=== PATIENT | male | born 1940 | race Caucasian/White ===

== ENCOUNTER 2017-01-31 05:44 | Inpatient (IN) | payer MEDICARE ==
[2017-01-31] MEDS ORDERED: Atorvastatin* 80 MG TAB PO ONE (06:57)
[2017-01-31] MEDS ORDERED: Metoprolol Tartrate TAB* 25 MG PO SCH (07:00)
[2017-01-31] MEDS ORDERED: Heparin VIAL(*) 5000 UNITS/ML VIAL (FIVE THOUSAND) IV SCH (07:00)
[2017-01-31] MEDS ORDERED: Heparin DRIP 25,000 UNITS(*) 25,000 UNITS/500 ML BAG IV SCH (07:00)
--- NOTE | 2017-01-31 07:05 | ED ---
Ayaan Gordillo Adam, scribed for Power Mendez MD on 01/31/17 at 0552 . HPI Chest Pain - HPI Summary HPI Summary: Pt is a 76 year old male transferred from [place] with a reported NSTEMI. The pt states that when he got up to go to the bathroom this morning he suddenly felt a strong pressure in his chest which lasted for 4-5 minutes. He also reports SOB and tingling radiating down his arm. The pain is currently resolved and the pt is not in any discomfort at this time. Pt states that prior to this morning, he has been havin intermittent CP for at least 3 days. It tends to be brought on by exertion. He denies any SOB with recumbent position. He denies any diaphoresis or edema. He has chronic abdominal pain from an ulcer. Negative tobacco/alcohol use. Negative hx of DM and HLD. - History of Current Complaint Hx Obtained From: Patient Onset/Duration: Started Hours Ago, Atraumatic, Resolved Timing: Intermittent Initial Severity: Moderate Current Severity: None Pain Intensity: 0 Pain Scale Used: 0-10 Numeric Chest Pain Location: Diffuse Chest Pain Radiates: Yes Chest Pain Radiates To:: Arm Character: Pressure/Squeezing Aggravating Factor(s): Exertion Alleviating Factor(s): Spontaneous Resolution Associated Signs and Symptoms: Positive: Tingling - Arm, Shortness of Breath - Allergy/Home Medications Allergies/Adverse Reactions: Allergies Allergy/AdvReac Type Severity Reaction Status Date / Time No Known Allergies Allergy Verified 01/31/17 06:00 Home Medications: Home Medications Fenofibrate 145 mg PO DAILY 01/31/17 [History Confirmed 01/31/17] Levothyroxine TAB* [Synthroid TAB*] 75 mcg PO 0800 01/31/17 [History Confirmed 01/31/17] Tamsulosin CAP* [Flomax CAP*] 0.4 mg PO BEDTIME 01/31/17 [History Confirmed ] PMH/Surg Hx/FS Hx/Imm Hx Endocrine/Hematology History: Denies: Hx Diabetes Cardiovascular History: Denies: Hx Hypercholesterolemia GI History: Reports: Hx Ulcer - Family History Known Family History: Positive: Cardiac Disease - Father - Social History Occupation: Retired Lives: Alone Alcohol Use: None Hx Tobacco Use: No Smoking Status (MU): Never Smoked Tobacco Review of Systems Negative: Skin Diaphoresis Positive: Chest Pain Positive: Shortness Of Breath Positive: Abdominal Pain - Chronic from ulcer Negative: Edema Positive: Numbness - Tingling in arm All Other Systems Reviewed And Are Negative: Yes Physical Exam - Summary Physical Exam Summary: The patient is well-nourished in no acute distress and in no acute pain. The skin is warm and dry and skin color reflects adequate perfusion. HEENT: The head is normocephalic and atraumatic. The pupils are equal and reactive. The conjunctivae are clear and without drainage. Nares are patent and without drainage. Mouth reveals moist mucous membranes and the throat is without erythema and exudate. The external ears are intact. The ear canals are patent and without drainage. The tympanic membranes are intact. Neck is supple with full range of motion and non-tender. There are no carotid bruits. There is no neck vein distension. Respiratory: Chest is non-tender. Lungs are clear to auscultation and breath sounds are symmetrical and equal. Cardiovascular: Heart is regular rate and rhythm. There is no murmur or rub auscultated. There is no peripheral edema and pulses are symmetrical and equal. Abdomen: The abdomen is soft and non-tender. There are normal bowel sounds heard in all four quadrants and there is no organomegaly palpated. Musculoskeletal: There is no back pain noted. Extremities are non-tender with full range of motion. There is good capillary refill. There is no peripheral edema or calf tenderness elicited. Neurological: Patient is alert and oriented to person, place and time. The patient has symmetrical motor strength in all four extremities. Cranial nerves are grossly intact. Deep tendon reflexes are symmetrical and equal in all four extremities. Psychiatric: The patient has an appropriate affect and does not exhibit any anxiety or depression. Triage Information Reviewed: Yes Vital Signs On Initial Exam: Initial Vitals Temp Pulse Resp BP Pulse Ox 97.7 F 56 14 135/77 95 01/31/17 05:51 01/31/17 05:51 01/31/17 05:51 01/31/17 05:51 01/31/17 05:51 Vital Signs Reviewed: Yes Diagnostics - Vital Signs Vital Signs Temp Pulse Resp BP Pulse Ox 01/31/17 06:30 55 11 118/76 97 01/31/17 06:18 54 15 97 01/31/17 06:16 145/69 01/31/17 05:52 97.7 F 56 14 135/77 95 01/31/17 05:51 97.7 F 56 14 135/77 95 - Laboratory Lab Results: Lab Results 01/31/17 Range/Units 06:26 B-Natriuretic Peptide 72 ( - 100) pg/mL Lab Statement: Any lab studies that have been ordered have been reviewed, and results considered in the medical decision making process. - EKG 06:01 Cardiac Rate: NL - 83 BPM EKG Rhythm: Sinus Rhythm Ectopy: PVCs EKG Interpretation: Old inferior wall AL. No ST elevations. Chest Pain Course/Dx - Course Assessment/Plan: there was no critical care time. pt was transferred from a critical access hospital and the hosptialist service was consulted for admission. - Chest Pain Differential Diagnosis/HQI/PQRI: ACS - Diagnoses Provider Diagnoses: NSTEMI (non-ST elevated myocardial infarction) - Provider Notifications Discussed Care Of Patient With: Dr. Barkley (hospitalist) at 06:12. He accepts admission of the patient. Discharge - Discharge Plan Condition: Stable Disposition: ADMITTED TO [facility] Referrals: Session Mamadou SALAS [Primary Care Provider] - The documentation as recorded by the Ayaan ryan Adam accurately reflects the service I personally performed and the decisions made by , Power Mendez MD.
[2017-01-31 08:45] LABS: Hematocrit 45 % (42-52); Hemoglobin 14.9 g/dl (14.0-18.0); Mean Corpuscular HGB Conc 33 g/dl (31-36); Mean Corpuscular Hemoglobin 30 pg (27-31); Mean Corpuscular Volume 91 fL (80-94); Mean Platelet Volume 8 um3 (7.4-10.4); Red Blood Count 4.92 10^6/ul (4.0-5.4); Red Cell Distribution Width 14 % (10.5-15); White Blood Count 6.9 10^3/ul (3.5-10.8)
[2017-01-31] MEDS: CMC: Fenofibrate(NF) 145 MG TAB PO SCH (09:01)
[2017-01-31 09:15] LABS: Troponin I 0.28 ng/mL (<0.04)
[2017-01-31] MEDS ORDERED: Atorvastatin* 80 MG TAB ONE (09:44)
[2017-01-31] MEDS: Ticagrelor* 90 MG TAB PO SCH ×2 (09:50→20:25)
[2017-01-31] MEDS: Aspirin EC Low Dose* 81 MG TAB.EC PO SCH (09:50)
[2017-01-31] MEDS: Levothyroxine TAB* 75 MCG TAB PO SCH (09:50)
[2017-01-31] MEDS ORDERED: NS 0.9% 1000 ML* 1,000 ML IV SCH ×2 (13:00→16:15)
[2017-01-31] MEDS: Omeprazole CAP* 20 MG PO SCH ×2 (13:16→20:25)
--- NOTE | 2017-01-31 13:17 | HP ---
HISTORY AND PHYSICAL: DATE OF ADMISSION: 01/31/17 CHIEF COMPLAINT: Chest pain. HISTORY OF PRESENT ILLNESS: The patient is a 76-year-old gentleman, who said he is having chest pressure on and off for the last 10 days. He went to the [facility] and they did a workup on him including an EKG and they thought there was congestion in his chest. He was placed on Levaquin for this. He said it did not help at all, in fact, if anything it aggravated his stomach. Early this morning, he had an increased chest pressure. It was about 3-4/10 in severity. It was on the left side. No nausea or vomiting, no palpitations, no sweating. He went to [facility], where he got 4 aspirin. In the ER there, he was found to have an elevated troponin of 0.45. PAST MEDICAL HISTORY: Significant for bleeding ulcer, thyroid dysfunction, BPH , hypertriglyceridemia. He denies any other history. CURRENT MEDICATIONS: Include: 1. Levothyroxine 75 mcg daily. 2. Tamsulosin 0.4 mg daily. 3. Fenofibrate 145 mg daily. ALLERGIES: He has no known drug allergies. FAMILY HISTORY: Mother at 80 of brain cancer. Father at 73. He had peptic ulcer disease. SOCIAL HISTORY: No tobacco, alcohol, or recreational drug use. 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 He is . He has 2 sons. His son, Kishore Ybarra, is his healthcare proxy. REVIEW OF SYSTEMS: A 14-point review of systems was completed with the patient. All pertinent positives and negatives are in the history of present illness, otherwise is negative. PHYSICAL EXAMINATION GENERAL: Pleasant gentleman, lying in bed, in no acute distress. VITAL SIGNS: Temperature 97.7 degrees, heart rate 62 beats per minute, respiratory rate 15 breaths per minute, pulse ox 97%, blood pressure 145/69. HEENT: Normocephalic, atraumatic. Pupils are equal, round, and reactive to light. Moist mucous membranes. NECK: Supple. No JVD, bruits, palpable thyroid, or lymphadenopathy. CHEST: Clear to auscultation and percussion bilaterally. CARDIOVASCULAR: S1, S2 appreciated. Regular rate and rhythm. ABDOMEN: Positive bowel sounds in all 4 quadrants. Soft, nontender, and nondistended. No hepatosplenomegaly. EXTREMITIES: No cyanosis, clubbing, or edema. +2 peripheral pulses bilaterally. NEURO: Alert and oriented x3. Moves all extremities. SKIN: No rashes or other abnormalities. DIAGNOSTIC STUDIES/LAB DATA: From [facility] shows white blood cell count of 7.47, hemoglobin 15.3, hematocrit 44.7, platelets are 227. His sodium was 139, potassium is 3.8, chloride 102, CO2 26, his BUN is 20, creat 1.3, his glucose is 124. His troponin is 0.45. BNP is 61.7. TSH 2.56. Chest x-ray results are not available for review. EKG shows second-degree heart block, Mobitz type II, PVCs, and bigeminy. ASSESSMENT AND PLAN: 1. Non-ST elevation myocardial infarction diagnosis, we will await our followup troponins here. For now, place on heparin drip, Brilinta, metoprolol, aspirin, and Lipitor. We will get cholesterol level. Cardiology is aware. Will likely benefit from cardiac cath. Place on telemetry. 2. Benign prostatic hyperplasia. Stable, continue tamsulosin. 3. Hypothyroidism. Stable, continue Synthroid. 4. FEN. N.p.o. awaiting likely intervention. 5. The patient is a full code. TIME SPENT: Over 75 minutes was spent on this H and P; more than 40 minutes of which was spent in direct [id number] contact with the patient in evaluation, physical exam, counseling, and coordination of care. CC: TALHA Nunez; Syed Perry MD* [id number]/[facility] #: [id number] MTDD
[2017-01-31] MEDS ORDERED: Heparin(*) 1000 UNIT/ML 10 ML VIAL CATH LAB IV ONE (14:24)
[2017-01-31] MEDS ORDERED: fentaNYL* 50 MCG/ML 2 ML VIAL (100 MCG VIAL) ONE (14:24)
[2017-01-31] MEDS ORDERED: Midazolam* 1 MG/ML 5 ML VIAL (5 MG) ONE (14:24)
[2017-01-31] MEDS ORDERED: VERAPAMIL 2.5 MG/ML 4 ML VIAL ONE (14:25)
[2017-01-31] MEDS ORDERED: nitroGLYCERIN DRIP* 250 ML ONE (14:25)
[2017-01-31] MEDS ORDERED: Heparin 2 UNITS/ML IVPREMIX* 2,000 ML IV ONE (14:25)
[2017-01-31] MEDS ORDERED: Lidocaine 1% INJ* 10 MG/ML 30 ML SDV ONE (14:25)
[2017-01-31] MEDS ORDERED: Iodixanol* (CONTRAST) 320 MG/ML 100 ML SDV ONE ×2 (14:26→15:11)
[2017-01-31] MEDS ORDERED: Nitroglycerin TAB 0.4 MG* 0.4 MG TAB SL PRN (16:14)
[2017-01-31] MEDS ORDERED: Ondansetron INJ* 2 MG/ML VIAL IV PRN (16:16)
[2017-01-31 17:01] LABS: Troponin I 0.35 ng/mL (<0.04)
[2017-01-31] MEDS: Metoprolol Tartrate TAB* 25 MG PO SCH (17:48)
[2017-01-31] MEDS: Tamsulosin CAP* 0.4 MG PO SCH (20:25)
[2017-01-31] MEDS ORDERED: Ticagrelor* 90 MG TAB PO SCH (21:00)
--- NOTE | 2017-01-31 21:02 | CONS ---
INTERVENTIONAL CARDIOLOGY CONSULT NOTE: DATE OF CONSULT: 01/31/17 PRIMARY CARE PHYSICIAN: Dr. Cervantes in [place]. HISTORY OF PRESENT ILLNESS: This 76-year-old male transferred from [place] ER with troponin-positive ACS. He is a fairly vague historian, denies any previous cardiac history. About a week and a half ago, he started to notice exertional dyspnea which was entirely new, associated with very vague mild chest pressure, which would last only a few seconds. He tells me, he was evaluated for an upper respiratory infection, had a chest x-ray and an EKG which were as far as he knows unremarkable. I do not have any records of that evaluation, but we do have an EKG from 01/17/17 from [place] which shows evidence of an old inferior infarct with Q-wave in aVF and ventricular ectopy. He then had another episode of chest pressure 3 days ago, on Tuesday, which he says lasted only a few minutes. He presented to [place] this morning and was transferred to our ER and then admitted. He is pain free. He relates a lifelong history of ulcer disease with upper GI bleeding at the time, used to be treated with Carafate. Now, he takes Zantac 75 mg b.i.d. whenever his "ulcer acts up" with pain. He has not had further bleeding. He does not take aspirin, he is not on a regular acid regimen. PAST MEDICAL HISTORY: Hyperlipidemia, on fenofibrate. Remote history of ulcer disease, hypothyroidism on replacement, apparent BPH, CKD stage 3. PRE-HOSPITAL MEDICATIONS: 1. Flomax 0.4 mg daily. 2. Synthroid 75 mcg daily. 3. Fenofibrate 145 mg daily. 4. Carafate 75 mg b.i.d. for the past week. ALLERGIES: None to mediations. FAMILY HISTORY: Positive for heart disease and palpitations. SOCIAL HISTORY: Non-smoker. REVIEW OF SYSTEMS: General: No weight loss. No fevers. TRANSIT SPECIALIST: No history of TIA or CVA. GI: Positive for history of remote ulcer disease, no subsequent bleeding, does not take aspirin. Circulatory: No claudication. Endocrine: No history of diabetes. Remainder all negative. PHYSICAL EXAM: General: He is pain free, complains of being hungry. Vital Signs: His BP is 140/67, heart rate is in the 50s to 60s and sinus rhythm, he is afebrile. Lungs: Clear to percussion and auscultation. Neck: JVP and carotids are normal. No bruits. JVP normal. HEENT: Unremarkable. Cardiac exam: Chest wall nontender, apex and RV not palpable, normal heart sounds, no gallops, murmur or rub. Abdomen: Very mild epigastric tenderness. Normal bowel sounds, aorta not palpable. Femoral pulses 2+, radial pulses 2+, pedal pulses 2+. He has no cyanosis, clubbing or edema. DIAGNOSTIC STUDIES/LAB DATA: Creatinine 1.3, blood sugar 124. CBC is stable. EKG shows again the inferior Q-wave. Troponin 0.36, 0.28, 0.37. BNP normal at 72. IMPRESSION: Troponin positive acute coronary syndrome/non-ST elevation infarct. He is a fairly vague historian, but has had recent onset of dyspnea with exertion. He has had fleeting episodes of vaguely described chest discomfort, he has a small troponin rise and evidence of an inferior infarct on EKG. We discussed the diagnosis, catheterization, his DILCIA score is 3. Culprit revascularization is appropriate depending on anatomy. We discussed possible stenting, we also discussed procedure risks including, myocardial infarction, cerebrovascular accident, bleeding, need for bypass grafting, emergent transfer, etc., we also discussed need for antiplatelet therapy post stenting without interruption and likely need for concomitant PPI therapy. He is agreeable to proceed. Hyperlipidemia: On fenofibrate. Lipid profile is pending. CC: Session in [place]* [id number]/[facility] #: [id number] JO
[2017-01-31 22:34] LABS: Troponin I 0.59 ng/mL (<0.04)
[2017-02-01] MEDS: Metoprolol Tartrate TAB* 25 MG PO SCH ×3 (00:44→20:17)
[2017-02-01 05:24] LABS: Hematocrit 40 % (42-52); Hemoglobin 13.6 g/dl (14.0-18.0); Mean Corpuscular HGB Conc 34 g/dl (31-36); Mean Corpuscular Hemoglobin 31 pg (27-31); Mean Corpuscular Volume 91 fL (80-94); Mean Platelet Volume 9 um3 (7.4-10.4); Red Blood Count 4.43 10^6/ul (4.0-5.4); Red Cell Distribution Width 14 % (10.5-15); White Blood Count 9.3 10^3/ul (3.5-10.8)
[2017-02-01 05:45] LABS: Calcium 8.8 mg/dL (8.6-10.3); EGFR African American 76.2 (>60); EGFR Non-African American 59.3 (>60); HDL Cholesterol 35.5 mg/dL; Potassium 3.7 mmol/L (3.5-5.0)
[2017-02-01] MEDS: Levothyroxine TAB* 75 MCG TAB PO SCH (05:47)
[2017-02-01 06:00] LABS: Troponin I 1.58 ng/mL (<0.04)
--- NOTE | 2017-02-01 09:05 | PN ---
Subjective Date of Service: 02/01/17 Interval History: Pt is feeling well. No chest pain or SOB today. His wrist is feeling ok. He is anxious to get home as soon as possible. Objective Active Medications: Aspirin (Aspirin Ec Low Dose*) 81 mg PO DAILY ON LICENSE OF [facility] Last Admin: 01/31/17 09:50 Dose: 81 mg Fenofibrate (Tricor(Nf)) 145 mg PO DAILY ON LICENSE OF [facility] Last Admin: 01/31/17 09:01 Dose: Not Given Levothyroxine Sodium (Synthroid Tab*) 75 mcg PO 0600 ON LICENSE OF [facility] Last Admin: 02/01/17 05:47 Dose: 75 mcg Metoprolol Tartrate (Lopressor Tab*) 50 mg PO BID ON LICENSE OF [facility] Nitroglycerin (Nitroglycerin Tab 0.4 Mg*) 0.4 mg SL Q5M PRN PRN Reason: ANGINA Omeprazole (Prilosec Cap*) 20 mg PO BID ON LICENSE OF [facility] Last Admin: 01/31/17 20:25 Dose: 20 mg Ondansetron HCl (Zofran Inj*) 4 mg IV Q4H PRN PRN Reason: NAUSEA Prasugrel (Effient (Nf)) 10 mg PO DAILY ON LICENSE OF [facility] Tamsulosin HCl (Flomax Cap*) 0.4 mg PO BEDTIME ON LICENSE OF [facility] Last Admin: 01/31/17 20:25 Dose: 0.4 mg Ticagrelor (Brilinta*) 90 mg PO BID ON LICENSE OF [facility] Stop: 02/01/17 23:59 Last Admin: 01/31/17 20:25 Dose: 90 mg Vital Signs 01/31/17 01/31/17 01/31/17 09:03 11:31 16:03 Temperature 98.0 F 98.3 F Pulse Rate 57 52 53 Respiratory 18 20 15 Rate Blood Pressure 151/72 140/67 (mmHg) O2 Sat by Pulse 100 100 96 Oximetry 01/31/17 01/31/17 01/31/17 16:10 16:15 16:30 Temperature 98.7 F Pulse Rate 69 54 66 Respiratory 15 13 20 Rate Blood Pressure 144/59 137/63 127/67 (mmHg) O2 Sat by Pulse 97 96 92 Oximetry 01/31/17 01/31/17 01/31/17 16:45 17:00 17:15 Temperature Pulse Rate 103 51 67 Respiratory 13 19 17 Rate Blood Pressure 140/102 139/69 142/75 (mmHg) O2 Sat by Pulse 94 97 94 Oximetry 01/31/17 01/31/17 01/31/17 17:30 17:45 18:00 Temperature Pulse Rate 53 56 59 Respiratory 17 18 17 Rate Blood Pressure 137/75 139/71 144/69 (mmHg) O2 Sat by Pulse 98 98 97 Oximetry 01/31/17 01/31/17 01/31/17 18:15 18:30 18:45 Temperature Pulse Rate 80 79 48 Respiratory 16 17 15 Rate Blood Pressure 115/52 126/83 113/64 (mmHg) O2 Sat by Pulse 98 95 95 Oximetry 01/31/17 01/31/17 01/31/17 19:00 19:28 20:00 Temperature 98.6 F Pulse Rate 63 Respiratory 14 19 Rate Blood Pressure 119/56 121/66 (mmHg) O2 Sat by Pulse 95 94 Oximetry 01/31/17 01/31/17 01/31/17 21:00 22:00 23:00 Temperature Pulse Rate Respiratory 18 22 13 Rate Blood Pressure 122/60 137/63 (mmHg) O2 Sat by Pulse 93 93 96 Oximetry 01/31/17 01/31/17 02/01/17 23:15 23:34 00:00 Temperature 98.4 F Pulse Rate Respiratory 12 23 Rate Blood Pressure (mmHg) O2 Sat by Pulse 95 94 Oximetry 02/01/17 02/01/17 02/01/17 00:01 01:00 02:00 Temperature Pulse Rate Respiratory 22 12 15 Rate Blood Pressure 120/52 115/71 99/48 (mmHg) O2 Sat by Pulse 94 96 91 Oximetry 02/01/17 02/01/17 02/01/17 02:02 03:00 03:13 Temperature 97.9 F Pulse Rate Respiratory 13 15 Rate Blood Pressure 115/49 114/57 (mmHg) O2 Sat by Pulse 93 92 Oximetry 02/01/17 02/01/17 02/01/17 03:40 04:00 05:00 Temperature Pulse Rate 57 Respiratory 15 13 Rate Blood Pressure 128/62 115/49 (mmHg) O2 Sat by Pulse 94 Oximetry 02/01/17 02/01/17 02/01/17 05:52 06:00 07:00 Temperature Pulse Rate 55 Respiratory 15 16 19 Rate Blood Pressure 144/65 143/63 (mmHg) O2 Sat by Pulse 97 95 Oximetry 02/01/17 02/01/17 07:52 08:00 Temperature 97.9 F Pulse Rate 69 Respiratory 15 Rate Blood Pressure 146/69 (mmHg) O2 Sat by Pulse 97 Oximetry Oxygen Devices in Use Now: None Appearance: Elderly male sitting up in bed, NAD Eyes: No Scleral Icterus Ears/Nose/Mouth/Throat: Mucous Membranes Moist Respiratory: Symmetrical Chest Expansion and Respiratory Effort, Clear to Auscultation Cardiovascular: NL Sounds; No Murmurs; No JVD, RRR, No Edema Abdominal: NL Sounds; No Tenderness; No Distention Extremities: No Clubbing, Cyanosis Skin: No Rash or Ulcers, No Nodules or Sclerosis Neurological: Alert and Oriented x 3 Result Diagrams: 02/01/17 04:20 02/01/17 04:20 Additional Lab and Data: Lab Results 01/31/17 Range/Units 06:26 B-Natriuretic Peptide 72 ( - 100) pg/mL Microbiology and Other Data: Microbiology 01/31/17 16:44 Nasal Screen MRSA (PCR)(PATO) - Final Nasal Mrsa Negative Assess/Plan/Problems-Billing Mr Ybarra is a 76 yo M who has a h/o hypothyroidism, BPH and HLD who presented initially to [facility] for evaluation of chest pressure and was found to have a NSTEMI and was transferred to [facility] [place] evaluation. - Patient Problems (1) NSTEMI (non-ST elevated myocardial infarction) Current Visit: Yes Status: Acute Code(s): I21.4 - NON-ST ELEVATION (NSTEMI) MYOCARDIAL INFARCTION SNOMED Code(s): 082859514 Comment: The patient was found to have a tight LAD lesion with clot present. He is now s/p stenting and feeling well. Most of the clot was able to be extracted however Dr. Mckeon stated a small part remained and lodged into another vessel likely leading to the troponin bump this AM. Continue ASA, effient and metoprolol. Lipid profile is favorable but will continue lipitor 40mg qHS. Transfer to [facility] and walking today and likely home tomorrow. (2) HLD (hyperlipidemia) Current Visit: Yes Status: Acute Code(s): E78.5 - HYPERLIPIDEMIA, UNSPECIFIED SNOMED Code(s): 70403053 Comment: Continue lipitor as above. (3) BPH (benign prostatic hyperplasia) Current Visit: Yes Status: Acute Code(s): N40.0 - BENIGN PROSTATIC HYPERPLASIA WITHOUT LOWER URINRY TRACT SYMP SNOMED Code(s): 478267856 Comment: Continue flomax. (4) Hypothyroid Current Visit: Yes Status: Acute Code(s): E03.9 - HYPOTHYROIDISM, UNSPECIFIED SNOMED Code(s): 99433255 Comment: Continue current dose of synthroid. (5) DVT prophylaxis Current Visit: Yes Status: Acute Code(s): BUR0014 - SNOMED Code(s): 030600983 Comment: Start SQ heparin (6) Full code status Current Visit: Yes Status: Acute Code(s): Z78.9 - OTHER SPECIFIED HEALTH STATUS SNOMED Code(s): 814566343
[2017-02-01] MEDS: CMC: Pantoprazole TAB (NF) 40 MG TAB PO SCH ×2 (09:44→20:17)
[2017-02-01] MEDS: Ticagrelor* 90 MG TAB PO SCH ×2 (09:44→20:17)
[2017-02-01] MEDS: Aspirin EC Low Dose* 81 MG TAB.EC PO SCH (09:44)
[2017-02-01 09:48] LABS: BUN/Creatinine Ratio 13.9 (8-20); Calcium 9.3 mg/dL (8.6-10.3); EGFR African American 74.1 (>60); EGFR Non-African American 57.6 (>60); HDL Cholesterol 40.7 mg/dL; Potassium 3.7 mmol/L (3.5-5.0)
[2017-02-01 10:15] LABS: Troponin I 1.97 ng/mL (<0.04)
[2017-02-01] MEDS: CMC: Fenofibrate(NF) 145 MG TAB PO SCH (10:53)
[2017-02-01] MEDS: Heparin VIAL(*) 5000 UNITS/ML VIAL (FIVE THOUSAND) SUBCUT SCH ×3 (12:56→21:41)
[2017-02-01 16:21] LABS: Hematocrit 41 % (42-52); Hemoglobin 13.7 g/dl (14.0-18.0); Mean Corpuscular HGB Conc 33 g/dl (31-36); Mean Corpuscular Hemoglobin 30 pg (27-31); Mean Corpuscular Volume 91 fL (80-94); Mean Platelet Volume 8 um3 (7.4-10.4); Red Cell Distribution Width 14 % (10.5-15); White Blood Count 9.8 10^3/ul (3.5-10.8)
[2017-02-01] MEDS: Tamsulosin CAP* 0.4 MG PO SCH (20:06)
[2017-02-01] MEDS ORDERED: Atorvastatin* 40 MG TAB PO SCH (21:00)
--- NOTE | 2017-02-01 22:40 | CATH ---
STENT REPORT: DATE OF PROCEDURE: 01/31/17 - ROOM #441 PRIMARY CARE PHYSICIAN: TALHA Nunez in [place]. PROCEDURES: Right radial artery access, bilateral selective coronary cineangiography, aspiration thrombectomy LAD, stent placement LAD 3.5 X 12 Synergy drug-eluting stent, post dilated with 3.75 x 12 noncompliant. HISTORY: A 76-year-old male with non-ST elevation infarct. PROCEDURE ACCESS: Right radial artery sheath, 6-F slender. MEDICATIONS: 1. Subcu lidocaine. 2. IV Versed. 3. IV fentanyl. 4. Heparin 3000 units, verapamil 3 mg. 5. Heparin 3000 units IA. 6. Brilinta 90 mg p.o. 7. Aspirin 81 mg p.o. pre-procedure. 8. Heparin 4000 units, 2000 units IV. DIAGNOSTIC CATHETERS: 5F TIG4, 5FL 3.5, 5F pigtail. HEMODYNAMICS: Initial BP 99/63, LV 110/4, no aortic valve gradient on pullback. GUIDING CATHETER: 6FL BU 3.5 wire 14 BMW. After the LAD was wired, a Pronto aspiration catheter was advanced for aspiration thrombectomy of the large thrombus within the LAD. The LAD was then stented with a 3.5 x 12 Synergy drug- eluting stent, 18 atmospheres 24 seconds, then post dilated with a 3.75 x 12 noncompliant balloon 20 atmospheres 30 seconds. After stent deployment, there was cut off of 2 branches of the septal car dumper likely due to embolization, these were each probed with the BMW wire and the balloon catheter was advanced past the point of occlusion; however, without any improved perfusion. I did not advance the Pronto into the septal car dumper because of its small size, out of concern of damaging the vessel. ANGIOGRAPHY: RCA: The RCA is large, dominant, has proximal 30% stenosis followed by another 30% stenosis. The PDA is moderate, followed by 2 smaller posterolaterals, the RCA has no significant stenosis. Left main: The left main is normal in size, has no stenosis. LAD: The LAD is large, supplies a large bifurcated diagonal branch after which , the LAD has an eccentric relatively short 95% stenosis from which there is an adherent thrombus. LAD distally has DILCIA-2 flow. Circumflex: The circumflex is moderate, not dominant with a small marginal and bifurcated posterolateral, has no significant stenosis. LV gram: There is a very localized apical hypokinesis, estimated LVEF with ectopy 55%. After LAD aspiration thrombectomy, the thrombus is not evident. After stent placement, post dilatation, the LAD has DILCIA-3 flow, no residual stenosis; however, there is a cut-off of each of the 2 branches of the septal car dumper, which persisted after wiring and passage of the balloon catheter. CONCLUSION: 1. Single vessel disease LAD, excellent angiographic result with drug-eluting stent placement accompanied by embolic occlusion of 2 branches of the septal car dumper unchanged with probing with the intracoronary wire and balloon catheter, aspiration thrombectomy not pursued because of concern of the size mismatch with the Pronto catheter. 2. LVEF with mild regional wall motion abnormality. 3. Normal left-sided hemodynamics. 4. Successful right radial artery access. CC: TALHA Nunez* [id number] #: [id number] MTDD
[2017-02-02] MEDS: Heparin VIAL(*) 5000 UNITS/ML VIAL (FIVE THOUSAND) SUBCUT SCH (05:13)
[2017-02-02] MEDS: Levothyroxine TAB* 75 MCG TAB PO SCH (05:13)
[2017-02-02 06:27] LABS: Hematocrit 42 % (42-52); Hemoglobin 14.1 g/dl (14.0-18.0); Mean Corpuscular HGB Conc 34 g/dl (31-36); Mean Corpuscular Hemoglobin 30 pg (27-31); Mean Corpuscular Volume 90 fL (80-94); Mean Platelet Volume 9 um3 (7.4-10.4); Red Blood Count 4.63 10^6/ul (4.0-5.4); Red Cell Distribution Width 14 % (10.5-15); White Blood Count 9.3 10^3/ul (3.5-10.8)
[2017-02-02 07:33] VITALS: BP 120/53
[2017-02-02] MEDS: CMC: Pantoprazole TAB (NF) 40 MG TAB PO SCH (08:24)
[2017-02-02] MEDS ORDERED: Prasugrel (NF) 10 MG PO SCH (09:00)
[2017-02-02] MEDS: Aspirin EC Low Dose* 81 MG TAB.EC PO SCH (09:37)
[2017-02-02] MEDS: Metoprolol Tartrate TAB* 25 MG PO SCH (09:37)
--- NOTE | 2017-02-03 12:07 | DS ---
DISCHARGE SUMMERY: DATE OF ADMISSION: 01/31/17. DATE OF DISCHARGE: 02/02/17. PRIMARY CARE PHYSICIAN: TLAHA Nunez. PRINCIPAL DIAGNOSIS: Non-ST elevation myocardial infarction. SECONDARY DIAGNOSES: 1. Hyperlipidemia. 2. Benign prostatic hyperplasia. 3. Hypothyroidism. DISCHARGE MEDICATIONS: 1. Flomax 0.4 mg p.o. q.h.s. 2. Synthroid 75 mcg p.o. daily. 3. Prasugrel 10 mg p.o. daily. 4. Omeprazole 20 mg p.o. daily. 5. Metoprolol tartrate 50 mg p.o. q.12 hours. 6. Lipitor 40 mg p.o. q.h.s. 7. Aspirin 81 mg p.o. daily. HOSPITAL COURSE: Mr. Ybarra is 76-year-old male who presented initially to [facility] approximately 10 days ago. He at that time was felt to have chest congestion, possible pneumonia, was started on Levaquin. He did not get any better, and in fact continued to have intermittent chest pressure. He re- presented to [facility] where he received 4 aspirin and in the ER was found to have a troponin of 0.45. The patient was ultimately transferred to [facility] for further evaluation. The patient was seen in consultation by Dr. Mckeon who felt that performing cardiac catheterization was necessary. The patient was taken to the labor utilization superintendent where he was found to have single vessel disease of the LAD. The patient was found to have a relatively short 95% stenosis from which there is an adherent thrombus. The patient had an aspiration thrombectomy and drug-eluting stent placement. The patient did well following the procedure. He has been up and ambulating well. The patient was felt to be ready for discharge home on 02/02/17. The patient was tolerating the new medications well. All prescriptions have been filled through the [facility] outpatient pharmacy and had been delivered to the patient's bedside prior to discharge. FOLLOWUP CONCERNS: The patient is being discharged home today, 02/02/17. Patient should follow up with Mamadou Reyna in the next 4 to 7 days, and Dr. Arizmendi on 02/08/17 at 1:15 p.m. ACTIVITY LEVEL: Is as per post-cath instructions. DIET: Low fat. CONDITION ON DISCHARGE: Stable. Thirty-five minutes was spent discharging this patient. CC: Dr. Arizmendi; TALHA Nunez. * [id number]/[facility] #: [id number] JO
== END 2017-02-02 11:07 | disposition home or self-care (01) | DRG 247 ==
LOC: ED 05:44 → MEDTELE 06:57 → ICU 15:31 → MEDTELE 02-01 11:16
PROVIDERS: ADMIT Internal Medicine; ATTEND Hospitalist
PROC: 027034Z Dilation of Coronary Artery, One Artery with Drug-eluting Intraluminal Device, Percutaneous Approach (ICD-10-PCS; 2017-01-31)
PROC: 02C03ZZ Extirpation of Matter from Coronary Artery, One Artery, Percutaneous Approach (ICD-10-PCS; 2017-01-31)
PROC: B215YZZ Fluoroscopy of Left Heart using Other Contrast (ICD-10-PCS; 2017-01-31)
PROC: B211YZZ Fluoroscopy of Multiple Coronary Arteries using Other Contrast (ICD-10-PCS; principal; 2017-01-31 15:00)
DX: I21.4 Non-ST elevation (NSTEMI) myocardial infarction (principal); N18.3 Chronic kidney disease, stage 3 (moderate); G89.29 Other chronic pain; N40.0 Benign prostatic hyperplasia without lower urinary tract symptoms; E07.9 Disorder of thyroid, unspecified; E78.1 Pure hyperglyceridemia; E03.9 Hypothyroidism, unspecified; E78.5 Hyperlipidemia, unspecified; R10.9 Unspecified abdominal pain; I25.10 Atherosclerotic heart disease of native coronary artery without angina pectoris; Z82.49 Family history of ischemic heart disease and other diseases of the circulatory system; Z80.8 Family history of malignant neoplasm of other organs or systems; Z83.79 Family history of other diseases of the digestive system; Z87.11 Personal history of peptic ulcer disease; Z79.82 Long term (current) use of aspirin; Z79.02 Long term (current) use of antithrombotics/antiplatelets
CPT/HCPCS: 36415; 80048; 80061; 82550; 83036; 83735; 83880; 84484; 84520; 85025; 85730; 87641; 93005; 93458; A9270-GY; C1725; C1757; C1769; C1876; C1887; C9600-LD; J1644; J2001; J2250; J3010

== ENCOUNTER 2017-02-15 19:57 | Emergency (ER) | payer MEDICARE ==
[2017-02-15 22:36] LABS: Hematocrit 39 % (42-52); Hemoglobin 13.1 g/dl (14.0-18.0); Mean Corpuscular HGB Conc 33 g/dl (31-36); Mean Corpuscular Hemoglobin 30 pg (27-31); Mean Corpuscular Volume 91 fL (80-94); Mean Platelet Volume 9 um3 (7.4-10.4); Red Blood Count 4.32 10^6/ul (4.0-5.4); Red Cell Distribution Width 14 % (10.5-15); White Blood Count 9.6 10^3/ul (3.5-10.8)
[2017-02-15 22:37] LABS: Add Diff/Slide Review? Slide Review Added; Comments Flag Yes
[2017-02-15 22:52] LABS: Albumin 4.1 g/dL (3.2-5.2); BUN/Creatinine Ratio 19.2 (8-20); Calcium 9.2 mg/dL (8.6-10.3); EGFR African American 75.5 (>60); EGFR Non-African American 58.7 (>60); Globulin 2.9 g/dL (2-4); Magnesium 2.2 mg/dL (1.9-2.7); Potassium 3.8 mmol/L (3.5-5.0); Total Bilirubin 0.4 mg/dL (0.2-1.0)
[2017-02-15 22:54] LABS: Troponin I 0.01 ng/mL (<0.04)
--- NOTE | 2017-02-15 23:01 | RAD ---
INDICATION: Chest and intermittent arm pain. Cardiac stent placed on Tuesday. COMPARISON: January 31, 2017 TECHNIQUE: Dual energy PA and routine lateral views of the chest were obtained. REPORT: Elevated lung volumes. No alveolar consolidation, focal pulmonary lesion, pleural effusion, pneumothorax. Upper normal heart size. Unremarkable central pulmonary vasculature. Calcified mediastinal and hilar lymph nodes. Moderately tortuous descending thoracic aorta. IMPRESSION: 1. Upper normal heart size. No evidence for pulmonary edema. 2. Stigmata of prior granulomatous disease. 3. Stigmata of chronic obstructive pulmonary disease.
[2017-02-15 23:36] VITALS: BP 126/67
--- NOTE | 2017-02-15 23:49 | ED ---
Too Gordillo Matthew, scribed for David Mayorga MD on 02/15/17 at 2249 . Upper Extremity Pain - HPI Summary HPI Summary: A 76 y/o male presents to the ED c/o of intermittent tingling in the right forearm. The pain is rated 4/10 in severity. The patient denies any other symptoms. He had a cardiac stent placed on 02/12/17 at [facility]. He had tingling in his arm during his previous [place]. - History of Current Complaint Chief Complaint: EDExtremityUpper Stated Complaint: ARM PAIN AFTER CARDIAC CATH Time Seen by Provider: 02/15/17 22:24 Hx Obtained From: Patient Onset/Duration: Still Present Timing: Intermittent Severity Initially: Mild Severity Currently: Mild Pain Location: Forearm - RT Aggravating Factor(s): Nothing Alleviating Factor(s): Nothing Associated Signs & Symptoms: Positive: Numbness/Tingling - right forearm - Allergies/Home Medications Allergies/Adverse Reactions: Allergies Allergy/AdvReac Type Severity Reaction Status Date / Time No Known Allergies Allergy Verified 01/31/17 06:00 PMH/Surg Hx/FS Hx/Imm Hx Endocrine/Hematology History: Denies: Hx Diabetes Cardiovascular History: Denies: Hx Hypercholesterolemia GI History: Reports: Hx Ulcer Sensory History: Reports: Hx Contacts or Glasses Denies: Hx Hearing Aid Opthamlomology History: Reports: Hx Contacts or Glasses Infectious Disease History: No Infectious Disease History: Denies: Traveled Outside the [place] in Last 30 Days - Family History Known Family History: Positive: Cardiac Disease - Father - Social History Alcohol Use: None Substance Use Type: Reports: None Hx Tobacco Use: No Smoking Status (MU): Never Smoked Tobacco Review of Systems Constitutional: Negative Eyes: Negative ENT: Negative Cardiovascular: Negative Respiratory: Negative Gastrointestinal: Negative Genitourinary: Negative Musculoskeletal: Negative Positive: Rash Neurological: Other - tingling in the right forearm Psychological: Normal All Other Systems Reviewed And Are Negative: Yes Physical Exam Triage Information Reviewed: Yes Vital Signs On Initial Exam: Initial Vitals Temp Pulse Resp BP Pulse Ox 96.9 F 49 18 146/76 99 02/15/17 20:01 02/15/17 20:01 02/15/17 20:01 02/15/17 20:01 02/15/17 20:01 Vital Signs Reviewed: Yes Appearance: Positive: Well-Appearing, No Pain Distress Skin: Positive: Warm Head/Face: Positive: Normal Head/Face Inspection Eyes: Positive: COTY ENT: Positive: Hearing grossly normal Neck: Positive: Supple Respiratory/Lung Sounds: Positive: Clear to Auscultation, Breath Sounds Present Cardiovascular: Positive: RRR Abdomen Description: Positive: Nontender, Soft Musculoskeletal: Positive: Normal, Strength/ROM Intact Neurological: Positive: Sensory/Motor Intact, Alert, Oriented to Person Place, Time, Normal Gait Psychiatric: Positive: Affect/Mood Appropriate Diagnostics - Vital Signs Vital Signs Temp Pulse Resp BP Pulse Ox 02/15/17 22:11 98.3 F 45 20 131/70 96 02/15/17 20:01 96.9 F 49 18 146/76 99 - Laboratory Lab Results: Lab Results 02/15/17 02/15/17 02/15/17 Range/Units 22:20 22:20 22:20 WBC 9.6 (3.5-10.8) 10^3/ul RBC 4.32 (4.0-5.4) 10^6/ul Hgb 13.1 L (14.0-18.0) g/dl Hct 39 L (42-52) % MCV 91 (80-94) fL MCH 30 (27-31) pg MCHC 33 (31-36) g/dl RDW 14 (10.5-15) % Plt Count 199 (150-450) 10^3/ul MPV 9 (7.4-10.4) um3 Neut % (Auto) 68.9 (38-83) % Lymph % (Auto) 22.7 L (25-47) % Bonner % (Auto) 4.1 (1-9) % Eos % (Auto) 1.4 (0-6) % Baso % (Auto) 2.9 H (0-2) % Absolute Neuts (auto) 6.6 (1.5-7.7) 10^3/ul Absolute Lymphs (auto) 2.2 (1.0-4.8) 10^3/ul Absolute Monos (auto) 0.4 (0-0.8) 10^3/ul Absolute Eos (auto) 0.1 (0-0.6) 10^3/ul Absolute Basos (auto) 0.3 H (0-0.2) 10^3/ul Absolute Nucleated RBC 0.01 10^3/ul Nucleated RBC % 0.1 INR (Anticoag Therapy) (0.89-1.11) Sodium 134 (133-145) mmol/L Potassium 3.8 (3.5-5.0) mmol/L Chloride 103 (101-111) mmol/L Carbon Dioxide 24 (22-32) mmol/L Anion Gap 7 (2-11) mmol/L BUN 23 (6-24) mg/dL Creatinine 1.20 H (0.67-1.17) mg/dL Est GFR ( Amer) 75.5 (>60) Est GFR (Non-Af Amer) 58.7 (>60) BUN/Creatinine Ratio 19.2 (8-20) Glucose 113 H (70-100) mg/dL Lactic Acid 0.9 (0.5-2.0) mmol/L Calcium 9.2 (8.6-10.3) mg/dL Magnesium 2.2 (1.9-2.7) mg/dL Total Bilirubin 0.40 (0.2-1.0) mg/dL AST 20 (13-39) U/L ALT 16 (7-52) U/L Alkaline Phosphatase 36 (34-104) U/L Troponin I 0.01 (<0.04) ng/mL Total Protein 7.0 (6.4-8.9) g/dL Albumin 4.1 (3.2-5.2) g/dL Globulin 2.9 (2-4) g/dL Albumin/Globulin Ratio 1.4 (1-3) 02/15/17 Range/Units 22:20 WBC (3.5-10.8) 10^3/ul RBC (4.0-5.4) 10^6/ul Hgb (14.0-18.0) g/dl Hct (42-52) % MCV (80-94) fL MCH (27-31) pg MCHC (31-36) g/dl RDW (10.5-15) % Plt Count (150-450) 10^3/ul MPV (7.4-10.4) um3 Neut % (Auto) (38-83) % Lymph % (Auto) (25-47) % Bonner % (Auto) (1-9) % Eos % (Auto) (0-6) % Baso % (Auto) (0-2) % Absolute Neuts (auto) (1.5-7.7) 10^3/ul Absolute Lymphs (auto) (1.0-4.8) 10^3/ul Absolute Monos (auto) (0-0.8) 10^3/ul Absolute Eos (auto) (0-0.6) 10^3/ul Absolute Basos (auto) (0-0.2) 10^3/ul Absolute Nucleated RBC 10^3/ul Nucleated RBC % INR (Anticoag Therapy) 1.03 (0.89-1.11) Sodium (133-145) mmol/L Potassium (3.5-5.0) mmol/L Chloride (101-111) mmol/L Carbon Dioxide (22-32) mmol/L Anion Gap (2-11) mmol/L BUN (6-24) mg/dL Creatinine (0.67-1.17) mg/dL Est GFR ( Amer) (>60) Est GFR (Non-Af Amer) (>60) BUN/Creatinine Ratio (8-20) Glucose (70-100) mg/dL Lactic Acid (0.5-2.0) mmol/L Calcium (8.6-10.3) mg/dL Magnesium (1.9-2.7) mg/dL Total Bilirubin (0.2-1.0) mg/dL AST (13-39) U/L ALT (7-52) U/L Alkaline Phosphatase (34-104) U/L Troponin I (<0.04) ng/mL Total Protein (6.4-8.9) g/dL Albumin (3.2-5.2) g/dL Globulin (2-4) g/dL Albumin/Globulin Ratio (1-3) Result Diagrams: 02/15/17 22:20 02/15/17 22:20 Lab Statement: Any lab studies that have been ordered have been reviewed, and results considered in the medical decision making process. - Radiology CXR Xray Interpretation: No Acute Changes - IMPRESSION: 1. Upper normal heart size. No evidence for pulmonary edema. 2. Stigmata of prior granulomatous disease. 3. Stigmata of chronic obstructive pulmonary disease. Radiology Interpretation Completed By: Radiologist - EKG 22:08 Cardiac Rate: Bradycardia - 43 bpm EKG Rhythm: Sinus Bradycardia Ectopy: PVCs - occasional EKG Interpretation: No STEMI Re-Evaluation - Re-Evaluation First Eval Change: Improved - pt asymptomatic, wants to go home Course/Dx - Course Assessment/Plan: A 76 y/o male presents to the ED c/o of intermittent tingling in the right forearm. The pain is rated 4/10 in severity. The patient denies any other symptoms. He had a cardiac stent placed on 02/12/17 at [facility]. He had tingling in his arm during his previous [place]. Labs were reviewed and shows troponin of 0.01. CXR shows . Upper normal heart size. No evidence for pulmonary edema. 2. Stigmata of prior granulomatous disease. 3. Stigmata of chronic obstructive pulmonary disease. EKG shows sinus brachycardia with occasional PVCs. In the ED course, the patient was give aspirin. He did not want to stay for the second troponin draw and will be discharged home to follow- up with his PCP. - Diagnoses Provider Diagnoses: Paresthesia Discharge - Discharge Plan Condition: Stable Disposition: HOME Patient Education Materials: Arm Pain (ED) Referrals: Session Mamadou SALAS [Primary Care Provider] - 1 Day Additional Instructions: Please follow-up with your primary care physician tomorrow. Return to the ED immediately if the pain worsens or you develop chest pain. The documentation as recorded by the Too ryan Matthew accurately reflects the service I personally performed and the decisions made by me, David Mayorga MD.
== END 2017-02-16 00:20 | disposition home or self-care (01) ==
LOC: ED 19:57
DX: R20.9 Unspecified disturbances of skin sensation (principal); R21 Rash and other nonspecific skin eruption; I25.2 Old myocardial infarction; Z95.5 Presence of coronary angioplasty implant and graft
CPT/HCPCS: 36415; 71020; 80053; 83605; 83735; 84484; 85025; 85610; 93005; 99282